=== PATIENT | male | born 1990 ===

== ENCOUNTER 2016-09-02 13:21 | Emergency (ER) | payer OTHER, BC ==
[2016-09-02 13:22] VITALS: BMI 33.0
--- NOTE | 2016-09-02 14:15 | ED PDOC ---
Arrival/HPI - General Chief Complaint: Abnormal Skin Integrity Time Seen by Provider: 09/02/16 13:35 Historian: Parent (Father) - History of Present Illness Narrative History of Present Illness (Text): 09/02/16 14:11 A 26 year old male, whose past medical history includes Autism, is brought into the emergency department by father complaining of an itchy rash throughout his body. Father notes a subjective fever last night. He reports he gave patient Zyertec, with no relief. Father denies any vomiting, diarrhea, abdominal pain, chest pain, shortness of breath, cough, nasal congestion, runny nose or any other complaints. PMD: Dr. Watkins Time/Duration: Other (Last night) Symptom Course: Unchanged Quality: Other Context: Home Past Medical History - Provider Review Nursing Documentation Reviewed: Yes - Cardiac Hx Cardiac Disorders: No - Pulmonary Hx Respiratory Disorders: No - Neurological Hx Neurological Disorder: No Other/Comment: AUTISM - HEENT Hx HEENT Disorder: No - Renal Hx Renal Disorder: No - Endocrine/Metabolic Hx Endocrine Disorders: No - Hematological/Oncological Hx Blood Disorders: No - Integumentary Hx Dermatological Disorder: No - Musculoskeletal/Rheumatological Hx Musculoskeletal Disorders: No - Gastrointestinal Hx Gastrointestinal Disorders: No - Genitourinary/Gynecological Hx Genitourinary Disorders: No - Psychiatric Hx Substance Use: No Other/Comment: aspergers syndrome - Anesthesia Hx Anesthesia: No Family/Social History - Physician Review Nursing Documentation Reviewed: Yes Family/Social History: No Known Family HX Smoking Status: Never Smoked Hx Alcohol Use: No Hx Substance Use: No Allergies/Home Meds Allergies/Adverse Reactions: Allergies shellfish derived Allergy (Verified 09/02/16 13:23) RASH Review of Systems - Physician Review All systems were reviewed & negative as marked: Yes - Review of Systems Constitutional: Fevers ENT: absent: Rhinorrhea, Sinus Congestion Respiratory: absent: SOB, Cough Cardiovascular: absent: Chest Pain Gastrointestinal: absent: Abdominal Pain, Diarrhea, Vomiting Skin: Rash Physical Exam Vital Signs Reviewed: Yes Vital Signs Temp Pulse Resp BP Pulse Ox 09/02/16 15:26 102 H 19 99 09/02/16 15:09 98.7 F 102 H 19 145/79 99 09/02/16 13:24 99.3 F 111 H 16 124/80 96 Temperature: Afebrile Blood Pressure: Normal Pulse: Tachycardic Respiratory Rate: Normal Appearance: Positive for: Well-Appearing, Non-Toxic, Comfortable Pain Distress: None - Systems Exam Head: Present: Atraumatic, Normocephalic Pupils: Present: PERRL Extroacular Muscles: Present: EOMI Conjunctiva: Present: Normal Mouth: Present: Moist Mucous Membranes Neck: Present: Normal Range of Motion Respiratory/Chest: Present: Clear to Auscultation, Good Air Exchange. No: Respiratory Distress, Accessory Muscle Use Cardiovascular: Present: Regular Rate and Rhythm, Normal S1, S2. No: Murmurs Abdomen: Present: Normal Bowel Sounds. No: Tenderness, Distention, Peritoneal Signs Back: Present: Normal Inspection Upper Extremity: Present: Normal Inspection. No: Cyanosis, Edema Lower Extremity: Present: Normal Inspection. No: Edema Neurological: Present: GCS=15, CN II-XII Intact, Speech Normal Skin: Present: Warm, Dry, Rashes (Vesicular rash scattered throughout body, mainly upper torso and face, less in lower extremities and not in palms) Psychiatric: Present: Alert Medical Decision Making ED Course and Treatment: 09/02/16 14:11 Impression: A 26 year old male with a rash throughout his body, mainly in upper torso and face. Differential Diagnosis included but are not limited to: Rash Plan: -- Labs -- Benadryl and IV fluids -- Reassess and disposition Progress Notes: 09/02/16 15:35 Patient well hydrated. HR improved. He's tolerating PO fluids. This is a viral exantham and may be chicken pox in appearance. I explained to parent that patient need to keep well hydrated. He needs to use lotion to help with itchiness as well as benadryl as needed. He had Zyrtec so I advised him not to use that at the same time as benadryl. He will f/u with his doctor today. - Lab Interpretations Lab Results: 09/02/16 14:30 09/02/16 14:30 Lab Results 09/02/16 14:30: Sodium 138, Potassium 4.0, Chloride 101, Carbon Dioxide 25, Anion Gap 16, BUN 11, Creatinine 0.8, Est GFR ( Amer) > 60, Est GFR (Non- Af Amer) > 60, Random Glucose 92, Calcium 9.3 09/02/16 14:30: WBC 4.3 L D, RBC 5.22, Hgb 15.5, Hct 44.0, MCV 84.3, MCH 29.7, MCHC 35.2, RDW 13.2, Plt Count 158, MPV 11.8 H, Gran % 56.1, Lymph % (Auto) 22.9 , [place] % (Auto) 19.4 H, Eos % (Auto) 0.7 L, Baso % (Auto) 0.9, Gran # 2.40, Lymph # 1.0 L, Platte # 0.8 H, Eos # 0.0, Baso # 0.04 I have reviewed the lab results: Yes - Medication Orders Current Medication Orders: Discontinued Medications Diphenhydramine HCl (Benadryl) 50 mg IVP STAT STA Stop: 09/02/16 14:19 Last Admin: 09/02/16 14:31 Dose: 50 mg Sodium Chloride (Sodium Chloride 0.9%) 1,000 mls @ 999 mls/hr IV .Q1H1M STA Stop: 09/02/16 15:18 Last Admin: 09/02/16 14:29 Dose: 999 mls/hr - Scribe Statement The provider has reviewed the documentation as recorded by the [facility] Provider Scribe Attestation: All medical record entries made by the Scribe were at my direction and personally dictated by me. I have reviewed the chart and agree that the record accurately reflects my personal performance of the history, physical exam, medical decision making, and the department course for this patient. I have also personally directed, reviewed, and agree with the discharge instructions and disposition. Disposition/Present on Arrival - Present on Arrival Any Indicators Present on Arrival: No History of DVT/PE: No History of Uncontrolled Diabetes: No Urinary Catheter: No History of Decub. Ulcer: No History Surgical Site Infection Following: None - Disposition Have Diagnosis and Disposition been Completed?: Yes Diagnosis: Viral exanthem Disposition: HOME/ ROUTINE Disposition Time: 15:36 Patient Plan: Discharge Condition: IMPROVED Discharge Instructions (ExitCare): Chickenpox (ED), Viral Exanthem (ED) Additional Instructions: Mr Vila, thank you for letting us take care of you today. Your provider was Dr. Barry. You were treated for Viral [place]. The emergency medical care you received today was directed at your acute symptoms. If you were prescribed any medication, please fill it and take as directed. It may take several days for your symptoms to resolve. Return to the Emergency Department if your symptoms worsen, do not improve, or if you have any other problems. Please contact your doctor or call one of the physicians/clinics you have been referred to that are listed on the Patient Visit Information form that is included in your discharge packet. Bring any paperwork you were given at discharge with you along with any medications you are taking to your follow up visit. Our treatment cannot replace ongoing medical care by a primary care provider (PCP) outside of the emergency department. Thank you for allowing the [facility] team to be part of your care today. If you had an X-Ray or CT scan: A Radiologist will review the ED reading if any change in treatment is needed we will contact you. If you had a blood, urine, or wound culture: It will take several days for the results, if any change in treatment is needed we will contact you. If you had an STI test: It will take 48 hours for the results. Please call after 1 week if you have not heard back. Prescriptions: Calamine/Zinc Oxide [Calamine Lotion] 120 ml EXT DAILY PRN #1 bottle PRN Reason: Itching / Pruritus Referrals: Justine Watkins DO [Primary Care Provider] - Follow up with primary Forms: [employer] ([place]oz[place]ican)
[2016-09-02] MEDS ORDERED: DiphenhydrAMINE 50 mg/ml Inj IVP STA (14:18)
[2016-09-02] MEDS ORDERED: Sodium Chloride 0.9% 1,000 ML IV STA (14:18)
[2016-09-02 14:39] LABS: ADD MANUAL DIFF? NO
[2016-09-02 14:50] LABS: BASO # 0.04 K/mm3 (0.0-2.0); BASO % 0.9 % (0.0-3.0); EOS % 0.7 % (1.5-5.0); GRAN % 56.1 % (50.0-68.0); LYMPH % 22.9 % (22.0-35.0); MEAN CELL VOLUME 84.3 fL (80.0-105.0); MEAN CORPUSCULAR HEMOGLOBIN 29.7 pg (25.0-35.0); MEAN CORPUSCULAR HGB CONC 35.2 g/dl (31.0-37.0); MEAN PLATELET VOLUME 11.8 fl (7.0-11.0); MONO # 0.8 (0.1-0.6); MONO % 19.4 % (1.0-6.0); PLATELET COUNT 158 10^3/uL (120.0-450.0); RED CELL DISTRIBUTION WIDTH 13.2 % (11.5-14.5); WHITE BLOOD COUNT 4.3 10^3/ul (4.5-11.0)
[2016-09-02 14:57] LABS: BLOOD UREA NITROGEN 11 mg/dL (7-21); CALCIUM 9.3 mg/dL (8.4-10.5); CARBON DIOXIDE 25 mmol/L (21-33); CHLORIDE 101 mmol/L (98-107); GFR AFRICAN-AMERICAN > 60; GLUCOSE,RANDOM 92 mg/dL (70-110); SODIUM 138 mmol/L (132-148)
[2016-09-02 15:09] VITALS: BP 145/79; PULSE 102; RESP 19; TEMP 98.7; O2SAT 99
== END 2016-09-02 15:30 | disposition home or self-care (01) ==
LOC: ED 13:21
DX: B09 Unspecified viral infection characterized by skin and mucous membrane lesions (principal)
CPT/HCPCS: 80048; 85025; 96374; 99284; J1200; J7040

== ENCOUNTER 2017-09-06 15:03 | Emergency (ER) | payer OTHER, BC ==
[2017-09-06 15:04] VITALS: BMI 33.0
[2017-09-06 15:25] VITALS: TEMP 98.2
--- NOTE | 2017-09-06 16:17 | ED PDOC ---
Arrival/HPI - General Chief Complaint: Trauma Time Seen by Provider: 09/06/17 15:40 Historian: Patient - History of Present Illness Narrative History of Present Illness (Text): 09/06/17 15:37 A 27 year old male, with no significant past medical history, presents to the emergency department complaining of pain to right-side coccyx and right hand. Patient reports [place] in the [place], and at some point the swing popped off and patient landed onto right side, injuring right-side coccyx and right outstretched palm. Specifically patient notes pain to right upper extremity 2nd MTCP joint of right palmar surface, mid-spinal LS pain, and right hip pain. Patient denies any head trauma, LOC, or any other complaints at this time. Also, patient mentions he was ambulatory at the scene post-fall. Patient' s vaccinations are up-to-date. No PMD Past Medical History - Provider Review Nursing Documentation Reviewed: Yes - Infectious Disease Hx of Infectious Diseases: None - Cardiac Hx Cardiac Disorders: No - Pulmonary Hx Respiratory Disorders: No - Neurological Hx Neurological Disorder: Yes Other/Comment: AUTISM - HEENT Hx HEENT Disorder: No - Renal Hx Renal Disorder: No - Endocrine/Metabolic Hx Endocrine Disorders: No - Hematological/Oncological Hx Blood Disorders: No - Integumentary Hx Dermatological Disorder: No - Musculoskeletal/Rheumatological Hx Musculoskeletal Disorders: No - Gastrointestinal Hx Gastrointestinal Disorders: No - Genitourinary/Gynecological Hx Genitourinary Disorders: No - Psychiatric Hx Substance Use: No Other/Comment: aspergers syndrome - Anesthesia Hx Anesthesia: No Family/Social History - Physician Review Nursing Documentation Reviewed: Yes Family/Social History: No Known Family HX Smoking Status: Never Smoked Hx Alcohol Use: No Hx Substance Use: No Allergies/Home Meds Allergies/Adverse Reactions: Allergies shellfish derived Allergy (Verified 09/06/17 15:26) RASH Review of Systems - Physician Review All systems were reviewed & negative as marked: Yes - Review of Systems Constitutional: absent: Other (no head trauma) Musculoskeletal: Back Pain (mid-lumbar region), Other (right hand injury/pain; right-side coccyx injury/pain; right hip pain) Neurological: absent: Other (no LOC) Physical Exam Vital Signs Reviewed: Yes Vital Signs Temp Pulse Resp BP Pulse Ox 09/06/17 17:04 78 17 126/75 99 09/06/17 15:25 98.2 F 85 18 128/71 100 Temperature: Afebrile Blood Pressure: Normal Pulse: Regular Respiratory Rate: Normal Appearance: Positive for: Well-Appearing, Non-Toxic, Comfortable Pain Distress: None Mental Status: Positive for: Alert and Oriented X 3 - Systems Exam Head: Present: Atraumatic, Normocephalic Pupils: Present: PERRL Extroacular Muscles: Present: EOMI Conjunctiva: Present: Normal Neck: Present: Normal Range of Motion Respiratory/Chest: Present: Clear to Auscultation, Good Air Exchange. No: Respiratory Distress, Accessory Muscle Use Cardiovascular: Present: Regular Rate and Rhythm, Normal S1, S2. No: Murmurs Abdomen: No: Tenderness, Distention, Peritoneal Signs Back: Present: Paraspinal Tenderness (lumbar region) Upper Extremity: Present: Tenderness (right hand MTCP joint palmar surface), Swelling (right hand MTCP joint palmar surface), Erythema (right hand MTCP joint palmar surface) Lower Extremity: Present: Normal Inspection. No: Edema Neurological: Present: GCS=15, CN II-XII Intact, Speech Normal Skin: Present: Warm, Dry, Normal Color. No: Rashes Psychiatric: Present: Alert, Oriented x 3, Normal Insight, Normal Concentration Medical Decision Making ED Course and Treatment: 09/06/17 15:41 Impression: 27 year old male with right-side coccyx pain/injury and right hand pain/injury. Physical exam shows erythema, swelling, and tenderness to right hand MTCP joint palmar surface; and paraspinal tenderness to lumbar region. Plan: -- Right Hand X-Ray -- Lumbar Spinal X-Ray -- Pelvis X-Ray -- Motrin -- Reassess and disposition Progress Notes: 09/06/17 18:32 pt ambulating without gait deficit , initially complained of ankle pain, and although [place] ankle rule (-) , imaging was conducted and found to be negative for acute ossueous injury. Father advised to apply ice and to alternate motrin/tylenol prn . - RAD Interpretation Radiology Orders: 09/06/17 15:41 HAND RIGHT 3 VIEWS [RAD] Stat PELVIS ONE VIEW [RAD] Stat 09/06/17 15:42 LS SPINE AP/LAT [RAD] Stat 09/06/17 16:47 ANKLE RIGHT 3 VIEWS ROUTINE [RAD] Stat - Medication Orders Current Medication Orders: Discontinued Medications Ibuprofen (Motrin Tab) 800 mg PO STAT STA Stop: 09/06/17 15:43 Last Admin: 09/06/17 15:47 Dose: 800 mg - Scribe Statement The provider has reviewed the documentation as recorded by the [facility]ers Provider Scribe Attestation: All medical record entries made by the Scriblokesh were at my direction and personally dictated by me. I have reviewed the chart and agree that the record accurately reflects my personal performance of the history, physical exam, medical decision making, and the department course for this patient. I have also personally directed, reviewed, and agree with the discharge instructions and disposition. Disposition/Present on Arrival - Present on Arrival Any Indicators Present on Arrival: No History of DVT/PE: No History of Uncontrolled Diabetes: No Urinary Catheter: No History of Decub. Ulcer: No History Surgical Site Infection Following: None - Disposition Have Diagnosis and Disposition been Completed?: Yes Diagnosis: Fall, Hand pain, right, Lumbago Disposition: HOME/ ROUTINE Disposition Time: 18:35 Patient Plan: Discharge Condition: IMPROVED Discharge Instructions (ExitCare): Muscle and Bone Pain (DC), Low Back Pain ( DC) Print Language: SLOV[place] Additional Instructions: Apply ice to painful areas. Alternate prescribed motrin and tylenol on a per needs basis for pain. If Pain not resolved within a week or is acutely worsening with limp or reluctance to walk or weakness then please return to the ER. Follow up with his regular PMD. Prescriptions: Acetaminophen [Tylenol] 650 mg PO Q6 PRN #40 capsule PRN Reason: Pain, Moderate (4-7) Ibuprofen [Motrin Tab] 600 mg PO Q6 PRN #40 tab PRN Reason: Pain, Moderate (4-7) Forms: [employer] (Vincentian)
--- NOTE | 2017-09-06 17:44 | RAD ---
PROCEDURE: Radiographs of the Lumbar Spine. HISTORY: fall onto coccyx from swing COMPARISON: No prior. FINDINGS: BONES: Normal alignment. No listhesis. No fracture. DISC SPACES: Unremarkable. OTHER FINDINGS: None. IMPRESSION: Unremarkable radiographs of the lumbar spine.
--- NOTE | 2017-09-06 17:44 | RAD ---
PROCEDURE: Radiographs of the pelvis. HISTORY: fall onto coccyx/rt hip pain COMPARISON: None. FINDINGS: BONES: Pelvic Bones: Unremarkable. Hips: Grossly unremarkable. JOINTS: Sacroiliac Joints: Unremarkable. Pubic Symphysis: Unremarkable. OTHER FINDINGS: None. IMPRESSION: Unremarkable radiographs of the pelvis.
--- NOTE | 2017-09-06 17:45 | RAD ---
PROCEDURE: Right Hand Radiographs. HISTORY: 2nd mtcp joint pain COMPARISON: None. FINDINGS: BONES: Normal. No fracture. JOINTS: Normal. No osteoarthritic changes. SOFT TISSUES: Normal. OTHER FINDINGS: None. IMPRESSION: Normal right hand radiographs.
[2017-09-06 18:25] VITALS: RESP 17
[2017-09-06 20:04] VITALS: BP 125/72; PULSE 75; O2SAT 100
--- NOTE | 2017-09-07 10:14 | RAD ---
PROCEDURE: Right Ankle Radiographs. HISTORY: fall/pain COMPARISON: None FINDINGS: BONES: Normal. No fracture. JOINTS: Normal. No osteoarthritis. Ankle mortise maintained. Talar dome intact SOFT TISSUES: Normal. OTHER FINDINGS: None. IMPRESSION: Normal right ankle radiographs.
== END 2017-09-06 20:04 | disposition home or self-care (01) ==
LOC: ED 15:03
DX: M79.641 Pain in right hand (principal); M54.5 Low back pain; W09.1XXA Fall from playground swing, initial encounter; Y92.830 Public park as the place of occurrence of the external cause